=== PATIENT | female | born 1995 | race Caucasian/White ===

== ENCOUNTER 2016-12-12 12:52 | Emergency (ER) | payer MEDICAID, OTHER ==
[~2016-12-12] VITALS: Ht 152.4 cm; Wt 50.0 kg
[2016-12-12 13:13] VITALS: Ht 152.4 cm; Wt 50.0 kg
[2016-12-12] MEDS ORDERED: BEN25 PO (15:13)
[2016-12-12] MEDS ORDERED: KENC1 TOP (15:13)
[2016-12-12] MEDS ORDERED: CEPH-443 PO (15:14)
--- NOTE | 2016-12-12 16:04 | ERD ---
ER Documentation Chief Complaint Date/Time DATE: 12/12/16 TIME: 15:56 Chief Complaint rash on hand HPI 21-year-old female presents the ED complaining of a rash noted on the bilateral hands. States that she was cleaning her house with bleach. Reports that she did not get bleach directly on her hands. States that she poured a little on the towel and started wiping things. States that she feels that she has her allergic reaction to bleach because this has happened previously. Patient states that she started to apply Tammie anti-itch cream. States it is itchy. Denies any fever, chills, loss of sensation, loss of range of motion, henson, injuries, abdominal pain, nausea, vomiting, shortness of breath, chest pain. ROS All systems reviewed and are negative except as per history of present illness. Medications Home Meds Active Scripts Cephalexin* (Keflex*) 500 Mg Capsule, 500 MG PO QID for 7 Days, CAP Prov:HARI VILLAGOMEZ PA-C 12/12/16 Triamcinolone Acetonide (Triamcinolone Acetonide) 0.1% - 15 Gm Cream.gm., 1 APPLIC TOP QID, #1 TUB Prov:HARI VILLAGOMEZ PA-C 12/12/16 Diphenhydramine Hcl* (Benadryl*) 25 Mg Cap, 25 MG PO Q6 Y for ITCHING/RASH, #30 TAB Prov:HARI VILLAGOMEZ PA-C 12/12/16 Physical Exam Vitals Vital Signs Date Time Temp Pulse Resp B/P Pulse Ox O2 Delivery O2 Flow Rate FiO2 12/12/16 13:13 97.8 82 18 133/86 100 Physical Exam Const: Jev-gjy-bhtrpzhkn, well-nourished. In no acute distress. Head: Atraumatic, normocephalic Eyes: Normal Conjunctiva without injection ENT: Normal external ear, nose and mouth. Neck: Full range of motion. No meningismus. Resp: Clear to auscultation bilaterally. No wheezing, rhonchi, rales, or crackles. No accessory muscle use. No retractions. Cardio: Regular rate and rhythm, no murmurs Skin: No petechiae or rashes Back: No midline tenderness. No CVA tenderness. Ext: No cyanosis, or edema. Eczematous rash noted bilaterally of the knuckles. Slight scabbing wounds. No purulent discharge. No fluctuance. No induration. No bleeding noted. Cap refill less than 2 seconds. Distal pulses intact bilaterally. Neur: Awake and alert. Normal gait and coordination. Muscle strength 5/5. Sensation intact bilaterally. Psych: Normal Mood and Affect Procedures/MDM This is a 21-year-old female with no significant past mental history presents the ED complaining of bilateral rashes on her hands after cleaning with bleach 1 week ago. Patient is afebrile and nontoxic-appearing. Patient has normal vital signs. Patient could benefit from a triamcinolone cream as it appears to have an eczematous-like appearance. Patient reports that it is itchy, therefore Benadryl will be prescribed for patient. Slight gaping wounds were noted secondary to scratching, therefore Keflex will be prescribed for prophylaxis. Patient for sepsis, necrotizing fasciitis, fractures, dislocations , deep space infection, henson, SJS, TEN, erythema multiforme or other emergent conditions. Discharge medications: Keflex, Triamcinolone, Benadryl Follow up with primary care physician in 1-2 days. Instructed patient to return to the ED sooner for any worsening symptoms. Patient's questions were answered. Patient understood and agreed with discharge plan. Patient discharged stable. Departure Diagnosis: Primary Impression: Rash and other nonspecific skin eruption Condition: Stable Patient Instructions: Self-Care for Skin Rashes, Skin Exposure, Chemical Referrals: COMMUNITY CLINICS YOU HAVE RECEIVED A MEDICAL SCREENING EXAM AND THE RESULTS INDICATE THAT YOU DO NOT HAVE A CONDITION THAT REQUIRES URGENT TREATMENT IN THE EMERGENCY DEPARTMENT. FURTHER EVALUATION AND TREATMENT OF YOUR CONDITION CAN WAIT UNTIL YOU ARE SEEN IN YOUR DOCTORS OFFICE WITHIN THE NEXT 1-2 DAYS. IT IS YOUR RESPONSIBILITY TO MAKE AN APPOINTMENT FOR FOLOW-UP CARE. IF YOU HAVE A PRIMARY DOCTOR --you should call your primary doctor and schedule an appointment IF YOU DO NOT HAVE A PRIMARY DOCTOR YOU CAN CALL OUR PHYSICIAN REFERRAL HOTLINE AT IF YOU CAN NOT AFFORD TO SEE A PHYSICIAN YOU CAN CHOSE FROM THE FOLLOWING COMMUNITY CLINICS [facility] [address] [facility] [address] [facility] [address] [facility]. [facility] [address] [facility]. [facility] [address] [facility]. [facility] [address] [facility]. [facility] YOU HAVE RECEIVED A MEDICAL SCREENING EXAM AND THE RESULTS INDICATE THAT YOU DO NOT HAVE A CONDITION THAT REQUIRES URGENT TREATMENT IN THE EMERGENCY DEPARTMENT. FURTHER EVALUATION AND TREATMENT OF YOUR CONDITION CAN WAIT UNTIL YOU ARE SEEN IN YOUR DOCTORS OFFICE WITHIN THE NEXT 1-2 DAYS. IT IS YOUR RESPONSIBILITY TO MAKE AN APPOINTMENT FOR FOLOW-UP CARE. IF YOU HAVE A PRIMARY DOCTOR --you should call your primary doctor and schedule and appointment IF YOU DO NOT HAVE A PRIMARY DOCTOR YOU CAN CALL OUR PHYSICIAN REFERRAL HOTLINE AT . IF YOU CAN NOT AFFORD TO SEE A PHYSICIAN YOU CAN CHOSE FROM THE FOLLOWING [facility] INSTITUTIONS: [facility] [address] [place] [address] [facility] [place] [address] [place] [address] L[facility] + [facility] [address] [place] [address] [facility] Additional Instructions: Visite a estrada preethi bruno para un EXAMEN.Regrese a estas instalaciones si no se mejora kiko esperbamos o kiko le seymourmos. HARI VILLAGOMEZ PA-C Dec 12, 2016 16:04
== END 2016-12-12 15:15 | disposition home or self-care (01) ==
LOC: E/R 12:52
DX: R21 Rash and other nonspecific skin eruption (principal)
CPT/HCPCS: 99284

== ENCOUNTER 2017-10-31 11:01 | Emergency (ER) | payer MEDICAID ==
[~2017-10-31] VITALS: Ht 152.4 cm; Wt 47.2 kg
[~2017-10-31 11:01] MED LIST: BEN25 PO; CEPH-443 PO; TRIA15CR55 TOP
[2017-10-31 11:04] VITALS: Ht 152.4 cm; Wt 47.2 kg
[2017-10-31] MEDS ORDERED: ACETAMINOPHEN 325 MG TAB PO ONE (12:30)
[2017-10-31] MEDS ORDERED: PENI500T PO (13:36)
[2017-10-31] MEDS ORDERED: TYL500 PO (13:37)
[2017-10-31] MEDS ORDERED: OMEP20CA16 PO (13:37)
--- NOTE | 2017-10-31 15:25 | ERD ---
ER Documentation Chief Complaint Chief Complaint fever , cough , sore throat , ear pain HPI This is a 22-year-old female presents to the ER with a fever, headache, sore throat that started yesterday. Patient states that sore throat is severe and is more painful whenever she swallows. She however denies any difficulty in swallowing. Patient has had multiple episodes of strep throat, is worried she has the same thing again. ROS 12 point review of systems was done, all negative except per HPI.. Medications Home Meds Active Scripts Omeprazole* (Omeprazole*) 20 Mg Capsule.dr, 20 MG PO BID, #20 Prov:TABITHA FULLER 10/31/17 Acetaminophen* (Tylenol*) 500 Mg Tab, 500 MG PO Q4H Y for MILD PAIN LEVEL 1-3 for 3 Days, TAB Prov:TABITHA FULLER 10/31/17 Penicillin V Potassium* (Penicillin V K*) 500 Mg Tab, 500 MG PO BID for 10 Days , TAB Prov:TABITHA FULLER 10/31/17 Cephalexin* (Keflex*) 500 Mg Capsule, 500 MG PO QID for 7 Days, CAP Prov:HARI VILLAGOMEZ PA-C 12/12/16 Triamcinolone Acetonide (Triamcinolone Acetonide) 0.1% - 15 Gm Cream.gm., 1 APPLIC TOP QID, #1 TUB Prov:HARI VILLAGOMEZ PA-C 12/12/16 Diphenhydramine Hcl* (Benadryl*) 25 Mg Cap, 25 MG PO Q6 Y for ITCHING/RASH, #30 TAB Prov:HARI VILLAGOMEZ PA-C 12/12/16 PMhx/Soc Medical and Surgical Hx: pt denies Medical Hx, pt denies Surgical Hx History of Surgery: No Anesthesia Reaction: No Hx Neurological Disorder: No Hx Respiratory Disorders: No Hx Cardiac Disorders: No Hx Psychiatric Problems: No Hx Miscellaneous Medical Probl: No (PT DENIES M/S HX) Hx Alcohol Use: No Hx Substance Use: No Hx Tobacco Use: No Physical Exam Vitals Vital Signs Date Time Temp Pulse Resp B/P Pulse Ox O2 Delivery O2 Flow Rate FiO2 10/31/17 11:04 100.7 122 18 134/72 98 Physical Exam GENERAL: The patient is well-developed, well-nourished, in no acute distress. NECK: Cervical spine is non tender with no step off. Supple, no nuchal rigidity HEENT: Atraumatic. Pupils equal, round and reactive to light. Extraocular muscles are grossly intact. Conjunctivae pink, no discharge. Bilateral tympanic membranes are clear with no evidence of erythema, effusion or dulling of the light reflex. Tonsilar erythema with no exudates or uvular deviation. Clear rhinorrhea. RESPIRATORY: Clear to auscultation bilaterally. There are no rales, wheezes or rhonchi. HEART: Regular rate and rhythm. No murmurs, clicks, rubs or gallops. EXTREMITIES: No clubbing or cyanosis. Full range of motion. Grossly neurovascularly intact. NEUROLOGIC: Alert and oriented. Cranial nerves II through XII are intact. SKIN: There is no rash. The skin is warm and dry. Results 24 hrs Current Medications Medications (Trade) Dose Ordered Sig/Shivam Route PRN Reason Start Time Stop Time Status Last Admin Dose Admin Acetaminophen (Tylenol Tab) 650 mg ONCE ONCE PO 10/31/17 12:30 10/31/17 12:31 DC 10/31/17 12:38 Procedures/MDM Patient did test positive for strep throat, suspicion for retropharyngeal abscess or peritonsillar abscess is low. If he was controlled in the ER. Patient is not hypoxic or in any respiratory distress. She will be sent home with penicillin. Patient is to follow-up with her primary care doctor within 1- 2 days return to ER sooner if symptoms worsen. My medical decision making sure with the patient she understands and agrees with plan. Departure Diagnosis: Primary Impression: Strep throat Condition: Stable Patient Instructions: Strep Throat Referrals: [facility] YOU HAVE RECEIVED A MEDICAL SCREENING EXAM AND THE RESULTS INDICATE THAT YOU DO NOT HAVE A CONDITION THAT REQUIRES URGENT TREATMENT IN THE EMERGENCY DEPARTMENT. FURTHER EVALUATION AND TREATMENT OF YOUR CONDITION CAN WAIT UNTIL YOU ARE SEEN IN YOUR DOCTORS OFFICE WITHIN THE NEXT 1-2 DAYS. IT IS YOUR RESPONSIBILITY TO MAKE AN APPOINTMENT FOR FOLOW-UP CARE. IF YOU HAVE A PRIMARY DOCTOR --you should call your primary doctor and schedule an appointment IF YOU DO NOT HAVE A PRIMARY DOCTOR YOU CAN CALL OUR PHYSICIAN REFERRAL HOTLINE AT IF YOU CAN NOT AFFORD TO SEE A PHYSICIAN YOU CAN CHOSE FROM THE FOLLOWING [facility] [address] [facility] [address] [facility] [address] [facility] [address] [facility] [address] [facility]. [facility] [address] [facility]. [facility] YOU HAVE RECEIVED A MEDICAL SCREENING EXAM AND THE RESULTS INDICATE THAT YOU DO NOT HAVE A CONDITION THAT REQUIRES URGENT TREATMENT IN THE EMERGENCY DEPARTMENT. FURTHER EVALUATION AND TREATMENT OF YOUR CONDITION CAN WAIT UNTIL YOU ARE SEEN IN YOUR DOCTORS OFFICE WITHIN THE NEXT 1-2 DAYS. IT IS YOUR RESPONSIBILITY TO MAKE AN APPOINTMENT FOR FOLOW-UP CARE. IF YOU HAVE A PRIMARY DOCTOR --you should call your primary doctor and schedule and appointment IF YOU DO NOT HAVE A PRIMARY DOCTOR YOU CAN CALL OUR PHYSICIAN REFERRAL HOTLINE AT . IF YOU CAN NOT AFFORD TO SEE A PHYSICIAN YOU CAN CHOSE FROM THE FOLLOWING [facility] INSTITUTIONS: [facility] [address] [place] [address] [facility] [address] [place] [address] [facility] + [facility] [address] [place] [address] Additional Instructions: Call your primary care doctor TOMORROW for an appointment during the next 1-2 days.See the doctor sooner or return here if your condition worsens before your appointment time. TABITHA FLULER Oct 31, 2017 15:24
== END 2017-10-31 13:48 | disposition home or self-care (01) ==
LOC: FTE 11:01
DX: J02.0 Streptococcal pharyngitis (principal)
CPT/HCPCS: 87880; Z7502; Z7610; 99283

== ENCOUNTER 2018-08-23 09:44 | Emergency (ER) | END 2018-08-23 12:28 | disposition home or self-care (01) ==

== ENCOUNTER 2019-01-06 11:25 | Emergency (ER) | payer SELFPAY ==
[~2019-01-06] VITALS: Ht 157.5 cm; Wt 53.0 kg
[~2019-01-06 11:25] MED LIST changes: +CYCL10TA7 PO; +HYDR-4011 PO; +NAPR-985 PO; +OMEP20CA16 PO; +PENI500T PO; +TYL500 PO
[2019-01-06 11:32] VITALS: Ht 157.5 cm; Wt 53.0 kg
[2019-01-06] MEDS ORDERED: ACETAMINOPHEN 500 MG TAB PO STA (14:41)
[2019-01-06] MEDS ORDERED: KETOROLAC 30 MG INJ IM STA (14:41)
[2019-01-06] MEDS ORDERED: IBUP-1561 PO (15:53)
[2019-01-06] MEDS ORDERED: D-ME473S2 PO (15:53)
--- NOTE | 2019-01-06 15:57 | ERD ---
ER Documentation Chief Complaint Chief Complaint FEVER ST AND CHILLS X 3 DAYS HPI 23-year-old female patient with no significant past medical history presents to ED complaining of fever, sore throat, chills that started 3 days ago. Patient is up-to-date with her vaccinations. Denies any sick contacts. Denies any shortness of breath, wheezing, abdominal pain, chest pain, neck stiffness, difficulty swallowing. ROS All systems reviewed and are negative except as per history of present illness. Medications Home Meds Active Scripts Ibuprofen* (Motrin*) 400 Mg Tab, 400 MG PO Q6, #30 TAB Prov:HARI VILLAGOMEZ PA-C 01/06/19 Dextromethorphan Hb-Promethazine Hcl* (Promethazine DM* Syrup) 473 Ml Syrup, 5 ML PO Q6 PRN for COUGH, #120 ML Prov:HARI VILLAGOMEZ PA-C 01/06/19 Cyclobenzaprine Hcl* (Cyclobenzaprine Hcl*) 10 Mg Tablet, 10 MG PO TID, #15 TAB Prov:ARLETH RESTREPO PA-C 08/23/18 Naproxen* (Naprosyn*) 500 Mg Tablet, 500 MG PO BID PRN for PAIN AND/OR INFLAM MATION, #30 TAB Prov:ARLETH RESTREPO PA-C 08/23/18 Hydrocodone/Acetaminophen ([place] 5-325 Tablet) 1 Each Tablet, 1 TAB PO Q6H PRN for PAIN, #7 TAB Prov:ARLETH RESTREPO PA-C 08/23/18 Omeprazole* (Omeprazole*) 20 Mg Capsule.dr, 20 MG PO BID, #20 Prov:TABITHA FULLER 10/31/17 Acetaminophen* (Tylenol*) 500 Mg Tab, 500 MG PO Q4H PRN for MILD PAIN LEVEL 1-3 for 3 Days, TAB Prov:TABITHA FULLER 10/31/17 Penicillin V Potassium* (Penicillin V K*) 500 Mg Tab, 500 MG PO BID for 10 Days, TAB Prov:TABITHA FULLER 10/31/17 Cephalexin* (Keflex*) 500 Mg Capsule, 500 MG PO QID for 7 Days, CAP Prov:HARI VILLAGOMEZ PA-C 12/12/16 Triamcinolone Acetonide (Triamcinolone Acetonide) 0.1% - 15 Gm Cream.gm., 1 APPLIC TOP QID, #1 TUB Prov:HARI VILLAGOMEZ Tree DUPREE 12/12/16 Diphenhydramine Hcl* (Benadryl*) 25 Mg Cap, 25 MG PO Q6 PRN for ITCHING/RASH, #30 TAB Prov:HARI VILLAGOMEZ Tree DUPREE 12/12/16 Allergies Allergies: Coded Allergies: No Known Allergy (Unverified , 01/06/19) PMhx/Soc Medical and Surgical Hx: pt denies Medical Hx, pt denies Surgical Hx History of Surgery: No Anesthesia Reaction: No Hx Neurological Disorder: No Hx Respiratory Disorders: No Hx Cardiac Disorders: No Hx Psychiatric Problems: No Hx Miscellaneous Medical Probl: No Hx Alcohol Use: No Hx Substance Use: No Hx Tobacco Use: No Smoking Status: Never smoker FmHx Family History: No diabetes, No coronary disease Physical Exam Vitals Vital Signs Date Temp Pulse Resp B/P (MAP) Pulse Ox O2 O2 Flow FiO2 Time Delivery Rate 01/06/19 101.6 111 19 142/82 99 11:32 (102) Physical Exam Const: Skw-ruq-kfkaqymxe, well-nourished. In no acute distress. Head: Atraumatic, normocephalic Eyes: Normal Conjunctiva without injection. No purulent discharge. PERRL. EOMI ENT: Normal external ear. Ear canal without erythema. Tympanic membrane pearly [place]ev[place] without effusion or bulging. No tenderness palpation of the tragus or mastoid. Nasal canal clear with normal turbinates. Moist oropharynx without tonsillar exudates. Non-erythematous pharynx. Uvula midline. No drooling. No trismus. Neck: Full range of motion. No meningismus. No cervical lymphadenopathy. Resp: Clear to auscultation bilaterally. No wheezing, rhonchi, rales, or crackles. No accessory muscle use. No retractions. Cardio: Regular rate and rhythm. No murmurs, rubs or gallops. Abd: Soft, non tender, non distended. Normal bowel sounds. No palpable masses. No rebound tenderness. No guarding. Skin: No petechiae or rashes Back: No midline tenderness. No CVA tenderness. Ext: No cyanosis, or edema. Neur: Awake and alert. Psych: Normal Mood and Affect Results 24 hrs Laboratory Tests Test 01/06/19 14:58 POC Beta HCG, Qualitative NEGATIVE Current Medications Medications Dose Sig/Shivam Start Time Status Last (Trade) Ordered Route PRN Stop Time Admin Dose Reason Admin Ketorolac 30 mg ONCE STAT 01/06/19 DC 01/06/19 Tromethamine IM 14:41 01/06/19 15:12 (Toradol) 14:42 500 mg ONCE STAT 01/06/19 DC 01/06/19 Acetaminophen PO 14:41 01/06/19 15:12 (Tylenol 14:42 Tab) Procedures/MDM 23-year-old female patient with no significant past medical history presents to ED complaining of fever, sore throat, chills that started 3 days ago. Patient has a fever 101.6. Ibuprofen, Tylenol was ordered to further dungeon patient's temperature. Influenza negative. This patient presents to the ED with symptoms consistent with a viral syndrome. Patient is afebrile and has normal vital sig ns. Patient's physical exam include lungs which were clear to auscultation and a normal pulse oximetry. There is a low suspicion for a croup, pneumonia, pneumothorax, strep pharyngitis, otitis media, otitis externa, sinusitis, peritonsillar abscess, foreign body aspiration, mastoiditis, retropharyngeal abscess, epiglottitis, meningitis, sepsis or other emergent conditions. Diagnosis: Fever, cough, body aches, sore throat Discharge medications: Follow up with primary care physician in 1-2 days. Instructed patient to return to the ED sooner for any worsening symptoms. Patient's questions were answered. Patient is hemodynamically stable. Patient understood and agreed with discharge plan. Patient discharged stable. Disclaimer: Inadvertent spelling and grammatical errors are likely due to EHR/dictation software use and do not reflect on the overall quality of patient care. Also, please note that the electronic time recorded on this note does not necessarily reflect the actual time of the patient encounter. Departure Diagnosis: Primary Impression: Fever Fever type: unspecified Qualified Codes: R50.9 - Fever, unspecified Additional Impressions: Cough Body aches Sore throat Condition: Stable Patient Instructions: Fever Control (Adult), Viral Syndrome (Adult) Referrals: COMM[facility]IC ([place]) Usted se randolph hecho un examen mdico de control que le indica que no est en maxine condicin que requiera tratamiento urgente en el Departamento de Emergencia. Un estudio ms profundo y el tratamiento de estrada condicin pueden esperar sin ningn riesgo hasta que usted sea atendida/o en el consultorio de estrada mdico o maxine clnica. Es responsabilidad suya arreglar maxine mar para el seguimiento del sánchez. MANEJO DE CONDICIONES NO URGENTES EN EL FUTURO 1) Si usted tiene un mdico de atencin primaria: Usted debera llamar a estrada mdico de atencin primaria antes de venir al departamento de emergencia. Despus de las horas de consultorio, estrada doctor o estrada asociado/a est disponible por telfono. El mdico o enfermero de lizeth en el servicio telefnico puede asesorarle por ursula medio para atender el problema, o sánchez contrario se puede programar maxine mar. 2) Si usted no tiene un mdico de atencin primaria: Llame al mdico o clnica de referencia que aparece abajo haris las horas de consultorio para hacer maxine mar para que le vean. CLINICAS: [facility] [phone] [facility] [phone] [facility] [phone] [address] [facility]. [facility] [phone] [address] [facility]. [place] [phone] [address] [facility]. [phone] [address] [facility]. [facility] () Usted se randolph hecho un examen mdico de control que le indica que no est en maxine condicin que requiera tratamiento urgente en el Departamento de Emergencia. Un estudio ms profundo y el tratamiento de estrada condicin pueden esperar sin ningn riesgo hasta que usted sea atendida/o en el consultorio de estrada mdico o maxine clnica. Es responsabilidad suya arreglar maxine mar para el seguimiento del sánchez. MANEJO DE CONDICIONES NO URGENTES EN EL FUTURO 1) Si usted tiene un mdico de atencin primaria: Usted debera llamar a estrada mdico de atencin primaria antes de venir al departamento de emergencia. Despus de las horas de consultorio, estrada doctor o estrada asociado/a est disponible por telfono. El mdico o enfermero de lizeth en el servicio telefnico puede asesorarle por ursula medio para atender el problema, o sánchez contrario se puede programar maxine mar. 2) Si usted no tiene un mdico de atencin primaria: Llame al mdico o condado institucions de referencia que aparece abajo haris las horas de consultorio para hacer maxine mar para que le vean. SI USTED NO PUEDE PAGAR PARA NATHAN UN MEDICO puede ir a: [facility] [address] [place] [address] [facility] [address] [place] [address] [facility] [address] [place] [address] [facility] [address] [place], [place] [id number] Additional Instructions: Llame al doctor MAANA y yonny maxine MAR PARA DENTRO DE 2-3 IVY.Dgale a la secretaria que nosotros le instruimos hacer esta mar.Avise o llame si estrada condicin se empeora antes de la mar. Regresa aqui si peor o no mejor. HARI VILLAGOMEZ PA-C Jan 06, 2019 15:57
[2019-01-06 16:07] VITALS: BP 111/71; PULSE 73; RESP 19
== END 2019-01-06 16:16 | disposition home or self-care (01) ==
LOC: FTE 11:25
DX: J02.9 Acute pharyngitis, unspecified (principal)
CPT/HCPCS: 81025; 87400; 96372; 99284; J1885